=== PATIENT | female | born 1995 | race Two or more races ===

== ENCOUNTER 2016-06-28 23:30 | Emergency (ER) | payer OTHER ==
[~2016-06-28] VITALS: Ht 154.9 cm; Wt 96.9 kg
[~2016-06-28 23:30] MED LIST: CIPRO500 MG PO; ENDOCET 5-3251 EACH PO; FERROUS GLUCON324 MG PO; FERROUS SULFAT325 MG PO; HYDROCODON-ACE1 EAC7 PO; IBUPROFEN800 MG PO; KEFLEX500 MG PO; METRONIDAZOLE500 MG PO; MOTRIN800 MG PO; NAPROSYN500 MG PO; PRENATAL TABLE1 EAC3 PO; ZOFRAN4 MG PO
[2016-06-29 01:05] LABS: ADD MIUA? YES; BILIRUBIN NEGATIVE; BLOOD NEGATIVE; COLOR YELLOW ((YELLOW)); GLUCOSE (STRIP) NEGATIVE; KETONES NEGATIVE; LEUKOCYTES TRACE; NITRITE NEGATIVE; PROTEIN (STRIP) NEGATIVE; SPECIFIC GRAVITY 1.012 (1.000-1.030); UROBILINOGEN 0.2 MG/DL (0.2-1.0)
[2016-06-29 01:06] LABS: HEMATOCRIT 37.3 % (36.0-46.0); MCH 27.9 PG (29.0-34.0); MCHC 33.2 G/DL (30.0-36.0); MCV 83.8 FL (83-99); MEAN PLAT.VOLUME 10.7 uM^3 (9.5-12.4); PLATELET COUNT 382 K/uL (156-360); RBC DIS.WIDTH-CV 14.1 % (11.8-14.6); RBC DIS.WIDTH-SD 42.5 % (39-53); RED BLOOD COUNT 4.45 M/uL (3.80-5.20); WHITE BLOOD COUNT 9.7 K/uL (4.1-10.2)
[2016-06-29 01:10] LABS: BACTERIA RARE /HPF; EPITHELIAL CELLS 2+ /HPF; MUCUS TRACE /LPF; RED BLOOD CELLS 0-5 /HPF (0-5); UCUL ADDED? NO; WHITE BLOOD CELLS 0-5 /HPF (0-5)
[2016-06-29 01:16] LABS: CHLORIDE 105 mEq/L (99-109)
[2016-06-29 01:17] LABS: SODIUM 139 mEq/L (136-147)
[2016-06-29 01:19] LABS: GLUCOSE 70 mg/dL (70-99)
[2016-06-29 01:20] LABS: ANION GAP 11 MEQ/L (2-14)
[2016-06-29 01:21] LABS: TOTAL BILIRUBIN 0.4 mg/dL (0.0-1.0)
[2016-06-29 01:22] LABS: ALKALINE PHOSPHATASE 71 IU/L (3-129)
[2016-06-29 01:23] LABS: GFR ESTIMATE (CALCULATED) > 59 mL/min/
[2016-06-29 01:24] LABS: UREA NITROGEN (BUN) 9 mg/dL (9-23)
[2016-06-29 01:26] LABS: LIPASE 25 U/L (1.0-51.0)
[2016-06-29 01:31] LABS: QUANTITATIVE HCG 2258.8 MIU/ML
[2016-06-29] MEDS ORDERED: ZOFRAN4 MG PO (01:39)
[2016-06-29] MEDS ORDERED: PRENATAL ONE T1 EACH PO (01:39)
[2016-06-29 02:42] VITALS: BP 116/60
== END 2016-06-29 02:47 | disposition home or self-care (01) ==
LOC: EME 23:30
PROVIDERS: Physician Assistant
DX: O99.351 Diseases of the nervous system complicating pregnancy, first trimester (principal); G43.909 Migraine, unspecified, not intractable, without status migrainosus; O21.9 Vomiting of pregnancy, unspecified; O26.891 Other specified pregnancy related conditions, first trimester; R07.81 Pleurodynia; M54.5 Low back pain; R06.02 Shortness of breath; Z3A.01 Less than 8 weeks gestation of pregnancy
CPT/HCPCS: 80053; 81003; 83690; 84702; 85027; 99281; 99285; J0595; J1200; J2765; J7040

== ENCOUNTER 2016-07-25 17:35 | Emergency (ER) | payer OTHER ==
[~2016-07-25] VITALS: Ht 154.9 cm; Wt 96.9 kg
[~2016-07-25 17:35] MED LIST changes: +PRENATAL ONE T1 EACH PO
[2016-07-25 18:52] LABS: HEMATOCRIT 34.1 % (36.0-46.0); MCH 27.3 PG (29.0-34.0); MCHC 32.3 G/DL (30.0-36.0); MCV 84.6 FL (83-99); MEAN PLAT.VOLUME 10.8 uM^3 (9.5-12.4); PLATELET COUNT 325 K/uL (156-360); RBC DIS.WIDTH-CV 14.3 % (11.8-14.6); RED BLOOD COUNT 4.03 M/uL (3.80-5.20)
[2016-07-25 18:56] LABS: WHITE BLOOD COUNT 6.7 K/uL (4.1-10.2)
[2016-07-25 19:12] LABS: ADD MIUA? YES; BILIRUBIN NEGATIVE; BLOOD LARGE; GLUCOSE (STRIP) NEGATIVE; KETONES NEGATIVE; LEUKOCYTES MODERATE; NITRITE NEGATIVE; PROTEIN (STRIP) 100; SPECIFIC GRAVITY 1.016 (1.000-1.030); UROBILINOGEN 0.2 MG/DL (0.2-1.0)
[2016-07-25 19:13] LABS: QUANTITATIVE HCG 4434.9 MIU/ML
[2016-07-25 19:16] LABS: COLOR RED ((YELLOW))
[2016-07-25 19:18] LABS: CHLORIDE 108 mEq/L (99-109); POTASSIUM 3.8 mEq/L (3.7-5.4); SODIUM 139 mEq/L (136-147)
[2016-07-25 19:20] LABS: GLUCOSE 89 mg/dL (70-99)
[2016-07-25 19:22] LABS: BACTERIA NONE SEEN /HPF; EPITHELIAL CELLS 1+ /HPF; MUCUS TRACE /LPF; RED BLOOD CELLS TNTC /HPF (0-5); UCUL ADDED? NO; UNCLASSIFIED CRYSTALS 2+ /HPF; WHITE BLOOD CELLS 30-40 /HPF (0-5)
[2016-07-25 19:22] LABS: ANION GAP 11 MEQ/L (2-14); TOTAL BILIRUBIN 0.2 mg/dL (0.0-1.0)
[2016-07-25 19:24] LABS: ALKALINE PHOSPHATASE 48 IU/L (3-129); GFR ESTIMATE (CALCULATED) > 59 mL/min/
[2016-07-25 19:25] LABS: UREA NITROGEN (BUN) 6 mg/dL (9-23)
[2016-07-25] MEDS ORDERED: PERCOCET 7.51 TABLET PO (21:36)
[2016-07-25] MEDS ORDERED: MOTRIN800 MG PO (21:36)
[2016-07-25 22:22] VITALS: BP 108/54
[2016-07-28 12:20] LABS: CHLAMYDIA TRACHOMATIS NEGATIVE; NEISSERIA GONORRHOEAE NEGATIVE
== END 2016-07-25 22:26 | disposition home or self-care (01) ==
LOC: EME 17:35
PROVIDERS: Physician Assistant
DX: O03.0 Genital tract and pelvic infection following incomplete spontaneous abortion (principal); N72 Inflammatory disease of cervix uteri
CPT/HCPCS: 76801; 80048; 80053; 81003; 84702; 85027; 87210; 87491; 87591; 99281; 99285; J0696; J3010

== ENCOUNTER 2016-09-14 21:46 | Emergency (ER) | payer OTHER ==
[~2016-09-14] VITALS: Ht 154.9 cm; Wt 94.6 kg
[~2016-09-14 21:46] MED LIST changes: +PERCOCET 7.51 TABLET PO
[2016-09-15 00:40] LABS: HEMATOCRIT 36.7 % (36.0-46.0); MCH 27.9 PG (29.0-34.0); MCV 84.6 FL (83-99); PLATELET COUNT 350 K/uL (156-360); RBC DIS.WIDTH-CV 13.2 % (11.8-14.6); RED BLOOD COUNT 4.34 M/uL (3.80-5.20); WHITE BLOOD COUNT 11.2 K/uL (4.1-10.2)
[2016-09-15 00:51] LABS: D-DIMER ELISA 0.43 mg/L FEU (< 0.57)
[2016-09-15 00:53] LABS: CHLORIDE 112 mEq/L (99-109); POTASSIUM 4.2 mEq/L (3.7-5.4); SODIUM 142 mEq/L (136-147)
[2016-09-15 00:55] LABS: GLUCOSE 76 mg/dL (70-99)
[2016-09-15 00:57] LABS: ANION GAP 8 MEQ/L (2-14); TOTAL BILIRUBIN 0.2 mg/dL (0.0-1.0)
[2016-09-15 00:59] LABS: ALKALINE PHOSPHATASE 66 IU/L (3-129); GFR ESTIMATE (CALCULATED) > 59 mL/min/
[2016-09-15 01:00] LABS: UREA NITROGEN (BUN) 12 mg/dL (9-23)
[2016-09-15 01:02] LABS: LIPASE 33 U/L (1.0-51.0)
[2016-09-15 01:11] LABS: ADD MIUA? YES; BILIRUBIN NEGATIVE; BLOOD MODERATE; COLOR YELLOW ((YELLOW)); GLUCOSE (STRIP) NEGATIVE; KETONES NEGATIVE; LEUKOCYTES LARGE; NITRITE NEGATIVE; PROTEIN (STRIP) NEGATIVE
[2016-09-15 01:43] LABS: BACTERIA RARE /HPF; EPITHELIAL CELLS 3+ /HPF; MUCUS 3+ /LPF; UCUL ADDED? NO; WHITE BLOOD CELLS 30-40 /HPF (0-5)
[2016-09-15 01:43] LABS: TROP-I INTERPRETATION NEGATIVE; TROPONIN-I < 0.01 ng/mL (0.0-0.30)
[2016-09-15] MEDS ORDERED: NORCO 5/3251 TABLET PO (01:56)
[2016-09-15] MEDS ORDERED: KEFLEX500 MG PO (01:56)
[2016-09-15] MEDS ORDERED: ZOFRAN ODT4 MG PO (01:56)
[2016-09-15 02:13] VITALS: BP 120/71
== END 2016-09-15 02:14 | disposition home or self-care (01) ==
LOC: EME 21:46
PROVIDERS: Physician Assistant
DX: N39.0 Urinary tract infection, site not specified (principal); R10.13 Epigastric pain; K21.9 Gastro-esophageal reflux disease without esophagitis
CPT/HCPCS: 71020; 76705; 80053; 81003; 83690; 84484; 85027; 85379; 93005; 99281; 99284

== ENCOUNTER 2016-09-22 00:30 | Emergency (ER) | payer OTHER ==
[~2016-09-22] VITALS: Ht 152.4 cm; Wt 92.5 kg
[~2016-09-22 00:30] MED LIST changes: +NORCO 5/3251 TABLET PO; +ZOFRAN ODT4 MG PO
[2016-09-22 00:56] VITALS: BP 127/60
[2016-09-22 01:20] LABS: HEMATOCRIT 36.9 % (36.0-46.0); MCH 27.7 PG (29.0-34.0); MCHC 33.1 G/DL (30.0-36.0); MCV 83.7 FL (83-99); MEAN PLAT.VOLUME 10.2 uM^3 (9.5-12.4); PLATELET COUNT 368 K/uL (156-360); RBC DIS.WIDTH-CV 13.4 % (11.8-14.6); RBC DIS.WIDTH-SD 41.5 % (39-53); RED BLOOD COUNT 4.41 M/uL (3.80-5.20)
[2016-09-22 01:30] LABS: CHLORIDE 109 mEq/L (99-109); POTASSIUM 3.4 mEq/L (3.7-5.4); SODIUM 140 mEq/L (136-147)
[2016-09-22 01:31] LABS: GLUCOSE 126 mg/dL (70-99)
[2016-09-22 01:33] LABS: ANION GAP 7 MEQ/L (2-14)
[2016-09-22 01:35] LABS: GFR ESTIMATE (CALCULATED) > 59 mL/min/
[2016-09-22 01:36] LABS: UREA NITROGEN (BUN) 10 mg/dL (9-23)
[2016-09-22 01:44] LABS: TROP-I INTERPRETATION NEGATIVE; TROPONIN-I < 0.01 ng/mL (0.0-0.30)
[2016-09-22 01:46] LABS: QUANTITATIVE HCG < 4.0 MIU/ML
== END 2016-09-22 04:32 | disposition left against medical advice (07) ==
LOC: EME 00:30
PROVIDERS: Emergency Medicine
DX: R07.9 Chest pain, unspecified (principal); K21.9 Gastro-esophageal reflux disease without esophagitis
CPT/HCPCS: 80048; 84484; 84702; 85027; 93005; 99281; 99284

== ENCOUNTER 2016-09-22 04:46 | Emergency (ER) | payer OTHER ==
[~2016-09-22] VITALS: Ht 162.6 cm; Wt 98.5 kg
[2016-09-22 05:36] LABS: AMYLASE 29 IU/L (1-118); CHLORIDE 112 mEq/L (99-109); SODIUM 141 mEq/L (136-147)
[2016-09-22 05:37] LABS: EOSINOPHIL (%) 0.7 % (0-5); EOSINOPHIL COUNT 0.1 K/uL (0-0.3); HEMATOCRIT 36.4 % (36.0-46.0); IMMATURE GRANULOCYTE (%) 0.3 % (0.0-0.7); INSTRUMENT ABS NEUTROPHIL CT 6.9 K/uL; LYMPHOCYTE COUNT 4.3 K/uL (1.0-2.8); MCH 27.5 PG (29.0-34.0); MCHC 33.5 G/DL (30.0-36.0); MCV 82.2 FL (83-99); MEAN PLAT.VOLUME 10.9 uM^3 (9.5-12.4); MONOCYTE (%) 7.5 % (3-12); MONOCYTE COUNT 0.9 K/uL (0-0.8); NEUTROPHIL COUNT 6.9 K/uL (1.8-6.4); PLATELET COUNT 402 K/uL (156-360); RBC DIS.WIDTH-CV 13.3 % (11.8-14.6); RBC DIS.WIDTH-SD 39.8 % (39-53); RED BLOOD COUNT 4.43 M/uL (3.80-5.20); WHITE BLOOD COUNT 12.3 K/uL (4.1-10.2)
[2016-09-22 05:38] LABS: GLUCOSE 110 mg/dL (70-99)
[2016-09-22 05:39] LABS: ANION GAP 10 MEQ/L (2-14)
[2016-09-22 05:41] LABS: SERUM ETHYL ALCOHOL < 10 mg/dL
[2016-09-22 05:42] LABS: GFR ESTIMATE (CALCULATED) > 59 mL/min/
[2016-09-22 05:43] LABS: UREA NITROGEN (BUN) 12 mg/dL (9-23)
[2016-09-22 05:45] LABS: LIPASE 11 U/L (1.0-51.0)
[2016-09-22 05:51] LABS: QUANTITATIVE HCG < 4.0 MIU/ML
[2016-09-22 07:03] VITALS: BP 107/78
== END 2016-09-22 07:20 | disposition home or self-care (01) ==
LOC: EME → EDBD 04:46 → EME 04:46
PROVIDERS: Emergency Medicine
DX: F41.9 Anxiety disorder, unspecified (principal); M54.2 Cervicalgia; Y04.8XXA Assault by other bodily force, initial encounter; Y07.9 Unspecified perpetrator of maltreatment and neglect; K21.9 Gastro-esophageal reflux disease without esophagitis
CPT/HCPCS: 70450; 72125; 80048 91; 81003; 82150; 83690; 84702; 85025; 86900; 86901; 99281; 99283; G0480; J2060; J7030

== ENCOUNTER 2016-10-20 23:35 | Emergency (ER) | payer OTHER ==
[~2016-10-20] VITALS: Ht 154.9 cm; Wt 93.2 kg
[2016-10-21 01:16] LABS: ADD MIUA? YES; BILIRUBIN NEGATIVE; BLOOD SMALL; COLOR YELLOW ((YELLOW)); GLUCOSE (STRIP) NEGATIVE; KETONES NEGATIVE; LEUKOCYTES LARGE; NITRITE NEGATIVE; PROTEIN (STRIP) 100; SPECIFIC GRAVITY 1.019 (1.000-1.030); UROBILINOGEN 0.2 MG/DL (0.2-1.0)
[2016-10-21 01:35] LABS: WHITE BLOOD CELLS TNTC /HPF (0-5)
[2016-10-21 01:36] LABS: EPITHELIAL CELLS 2+ /HPF
[2016-10-21 01:37] LABS: AMORPHOUS URATES CRYSTALS 2+; BACTERIA 2+ /HPF; CRYSTALS PRESENT; MUCUS NONE SEEN /LPF; UCUL ADDED? YES
[2016-10-21 01:47] LABS: INTERNAL CONTROL VALID? YES
[2016-10-21] MEDS ORDERED: BACTRIM,SEPT1 TABLET PO (02:10)
[2016-10-21 02:20] VITALS: BP 113/67
== END 2016-10-21 02:21 | disposition home or self-care (01) ==
LOC: EME 23:35
PROVIDERS: Physician Assistant
DX: N39.0 Urinary tract infection, site not specified (principal); R51 Headache
CPT/HCPCS: 81003; 84703; 87077; 87086; 99281; 99284